=== PATIENT | male | born 1995 | race Caucasian/White ===

== ENCOUNTER 2018-11-14 21:01 | Emergency (ER) | payer SELFPAY ==
[2018-11-14] MEDS ORDERED: FAMOTIDINE 20 MG/2 ML VIAL IV ONE (21:50)
--- NOTE | 2018-11-14 21:55 | RAD REPORT ---
EXAM DESCRIPTION: US - Abdomen Exam Limited - 11/14/2018 9:49 pm CLINICAL HISTORY: EPIGASTRIC PAIN COMPARISON: No comparisons FINDINGS: The gallbladder demonstrates no gallstones. No pericholecystic fluid or gallbladder wall t hickening. The common bile duct is normal measuring 2 mm. The liver demonstrates no findings of intrahepatic biliary dilatation. IMPRESSION: Unremarkable examination.
[2018-11-14 21:57] LABS: Absolute Lymphocytes (CBC) 2.9 K/uL (0.7-4.9); Absolute Monocytes 0.6 K/uL (0.1-1.3); Absolute Neutrophil 5.4 K/uL (1.8-8.0); Basophils % 0.4 % (0-1.3); Eosinophils % 1.8 % (0-4.4); Hematocrit 46.6 % (39.6-49.0); Lymphocytes % 31.7 % (15.3-44.8); Monocytes % 7.1 % (3.3-12.3); RBC Red Blood Cell Count 5.34 M/uL (4.33-5.43)
[2018-11-14 21:59] LABS: Protime INR 0.99
[2018-11-14] MEDS ORDERED: MAGNE/ALUM HYDROXD 30 ML UCUP ONE (22:21)
[2018-11-14] MEDS ORDERED: LIDOCAINE VISCOUS 2% SOLN 15 ML UDC ONE (22:21)
[2018-11-14 22:53] LABS: ALT/SGPT 31 U/L (12-78); AST/SGOT 14 U/L (15-37); Albumin 4.1 g/dL (3.4-5.0); Alkaline Phosphatase 69 U/L (45-117); BUN Blood Urea Nitrogen 21 mg/dL (7-18); Bicarbonate 26 mmol/L (21-32); Bilirubin Direct 0.2 mg/dL (0-0.2); Bilirubin Total 0.7 mg/dL (0.2-1.0); Glucose Level 98 mg/dL (74-106); Lipase 88 U/L (73-393); Magnesium 1.9 mg/dL (1.8-2.4); Potassium 3.8 mmol/L (3.5-5.1); Protein, Total 7.6 g/dL (6.4-8.2); Sodium Level 139 mmol/L (136-145); Troponin (Emerg Dept Use Only) < 0.02 ng/mL (0.0-0.045)
--- NOTE | 2018-11-14 23:42 | ER ---
Nurse's Notes [facility] Name: Jason Allen Age: 23 yrs Sex: Male : 1995 Arrival Date: 11/14/2018 Time: 21:03 Bed 8 Private MD: Diagnosis: Epigastric pain Presentation: 11/14 21:24 Presenting complaint: Patient states: Pt reports for the last couple days he has been ea having left arm pain and numbness with chest pain. Pt reports the pain worsened after he ate spicy food today. Transition of care: patient was not received from another setting of care. Onset of symptoms was November 14, 2018. Risk Assessment: Do you want to hurt yourself or someone else? Patient reports no desire to harm self or others. Initial Sepsis Screen: Does the patient meet any 2 criteria? HR > 90 bpm. Does the patient have a suspected source of infection? No. Patient's initial sepsis screen is negative. Care prior to arrival: None. 21:24 Method Of Arrival: Ambulatory ea 21:24 Acuity: BERNADETTE 3 ea Triage Assessment: 21:31 General: Appears uncomfortable, Behavior is anxious. Pain: Complains of pain in ea epigastric area, right hand, left hand, right arm and left arm Quality of pain is described as burning, numb. Neuro: Level of Consciousness is awake, alert, obeys commands, Oriented to person, place, time, situation. Cardiovascular: Patient's skin is warm and dry. Respiratory: Airway is patent Respiratory effort is even, unlabored, Respiratory pattern is regular, symmetrical. Derm: Skin is pink, warm \T\ dry. Historical: - Allergies: 21:30 No Known Allergies; ea - Home Meds: 21:30 None [Active]; ea - PMHx: 21:30 None; ea - PSHx: 21:30 None; ea - Immunization history:: Adult Immunizations up to date. - Social history:: Smoking status: Patient/guardian denies using tobacco, Patient uses marijuana occasionally. - Ebola Screening: : No symptoms or risks identified at this time. Screenin:27 Abuse screen: Denies threats or abuse. Nutritional screening: No deficits noted. ea Tuberculosis screening: No symptoms or risk factors identified. Fall Risk None identified. Assessment: 21:32 Reassessment: see triage assessment. ea 22:37 Reassessment: Patient and/or family updated on plan of care and expected duration. Pain ea level reassessed. Patient is alert, oriented x 3, equal unlabored respirations, skin warm/dry/pink. 23:50 Reassessment: Patient and/or family updated on plan of care and expected duration. Pain ea level reassessed. Patient is alert, oriented x 3, equal unlabored respirations, skin warm/dry/pink. Discharge instructions given to patient, verbalized the understanding of instruction Patient states feeling better. Patient states symptoms have improved. Vital Signs: 21:28 BP 142 / 102; Pulse 102; Resp 19; Temp 99.2; Pulse Ox 97% on R/A; Weight 99.79 kg; ea Height 5 ft. 8 in. (172.72 cm); Pain 8/10; 21:37 BP 136 / 90; Pulse 100; Resp 19; Pulse Ox 95% ; ea 22:38 BP 167 / 100; Pulse 82; Resp 18; Pulse Ox 95% ; ea 23:37 BP 120 / 94; Pulse 80; Resp 16; Pulse Ox 95% ; ea 21:28 Body Mass Index 33.45 (99.79 kg, 172.72 cm) ea ED Course: 21:03 Patient arrived in ED. ds1 21:15 Herbie Dial PA is PHCP. cp 21:15 Herbie Reynaga MD is Attending Physician. cp 21:24 Jannet Escoto, RN is Primary Nurse. ea 21:27 Triage completed. ea 21:27 Patient has correct armband on for positive identification. Placed in gown. Bed in low ea position. Call light in reach. Side rails up X 1. case monitor on. 21:27 Arm band placed on right wrist. Patient placed in an exam room, on a stretcher, on ea alarm security or surveillance monitor, on pulse oximetry. EKG completed in triage. Results shown to MD. 21:30 Inserted saline lock: 20 gauge in right antecubital area, using aseptic technique. ea Blood collected. Patient maintains SpO2 saturation greater than 95% on room air. 21:52 US Abdomen Limited In Process Unspecified. EDMS 23:29 X-ray completed. Portable x-ray completed in exam room. Patient tolerated procedure sg4 well. 23:30 XRAY Chest (1 view) In Process Unspecified. EDMS 23:50 No provider procedures requiring assistance completed. IV discontinued, intact, ea bleeding controlled, No redness/swelling at site. Pressure dressing applied. Administered Medications: 22:01 Drug: Pepcid 20 mg Route: IVP; Site: right antecubital; ea 22:13 Follow up: Response: No adverse reaction ea 22:13 Drug: GI Cocktail without - (Maalox Suspension 30 ml, Lidocaine Liquid 2 % 15 ea ml) Route: PO; 23:00 Follow up: Response: No adverse reaction; Marked relief of symptoms ea Outcome: 23:41 Discharge ordered by . roel 23:50 Discharged to home ambulatory, with family. emery 23:50 Condition: improved 23:50 Discharge instructions given to patient, Instructed on discharge instructions, follow up and referral plans. medication usage, Demonstrated understanding of instructions, follow-up care, medications, Prescriptions given X 1. 23:57 Patient left the ED. ea Signatures: Dispatcher [employer] EDIsis Doyle ds1 Herbie Dial PA PA cp Antunez, Elena, RN RN Arabella Foley sg4
--- NOTE | 2018-11-14 23:42 | EDPHYS ---
Physician Documentation [facility] Name: Jason Allen Age: 23 yrs Sex: Male : 1995 Arrival Date: 11/14/2018 Time: 21:03 Bed 8 Private MD: ED Physician Herbie Reynaga HPI: 11/14 21:35 This 23 yrs old Male presents to ER via Ambulatory with complaints of cp epigastric pain. 21:35 The patient presents with abdominal pain in the epigastric area. Onset: The cp symptoms/episode began/occurred today. The symptoms do not radiate. Associated signs and symptoms: Pertinent positives: chest pain, Pertinent negatives: nausea and vomiting, anorexia, constipation, diarrhea, fever, testicular pain, vomiting. The symptoms are described as sharp. Patient reports pain started after eating chilli tonight. Patient also c/o intermittent pain with numbness to bilateral forearms. Denies any current arm pain. Historical: - Allergies: 21:30 No Known Allergies; ea - Home Meds: 21:30 None [Active]; ea - PMHx: 21:30 None; ea - PSHx: 21:30 None; ea - Immunization history:: Adult Immunizations up to date. - Social history:: Smoking status: Patient/guardian denies using tobacco, Patient uses marijuana occasionally. - Ebola Screening: : No symptoms or risks identified at this time. ROS: 21:40 Constitutional: Negative for body aches, chills, fever, poor PO intake. cp 21:40 Eyes: Negative for injury, pain, redness, and discharge. cp 21:40 ENT: Negative for drainage from ear(s), ear pain, sore throat, difficulty swallowing, cp difficulty handling secretions. 21:40 Cardiovascular: Positive for chest pain, of the epigastric area, Negative for edema, palpitations. 21:40 Respiratory: Negative for cough, shortness of breath, wheezing. 21:40 Abdomen/GI: Positive for abdominal pain, of the epigastric area, Negative for vomiting, diarrhea, constipation, anorexia, dysphagia, black/tarry stool, rectal bleeding. 21:40 Back: Negative for radiated pain. 21:40 : Negative for urinary symptoms. 21:40 MS/extremity: Positive for pain, paresthesias, intermittent bilateral forearm, Negative for injury or acute deformity, decreased range of motion. 21:40 Skin: Negative for cellulitis, rash. 21:40 Neuro: Negative for altered mental status, headache, weakness. cp 21:40 All other systems are negative. Exam: 21:35 ECG was reviewed by the Attending Physician. cp 21:45 Constitutional: The patient appears in no acute distress, alert, awake, cp non-diaphoretic, non-toxic, well developed, well nourished. 21:45 Head/Face: Normocephalic, atraumatic. cp 21:45 Eyes: Periorbital structures: appear normal, Conjunctiva: normal, no exudate, no cp injection, Sclera: no appreciated abnormality, Lids and lashes: appear normal, bilaterally. 21:45 ENT: External ear(s): are unremarkable, Nose: is normal, Mouth: Lips: moist, Oral mucosa: pink and intact, moist, Posterior pharynx: is normal, airway is patent, no erythema, no exudate. 21:45 Neck: ROM/movement: is normal, is supple, without pain, no range of motions limitations, no meningismus, no nuchal rigidity. 21:45 Chest/axilla: Inspection: normal, Palpation: crepitus, is not appreciated, tenderness, that is mild, of the xyphoid area. 21:45 Cardiovascular: Rate: tachycardic, Rhythm: regular, Pulses: Pulses are 2+ in right radial artery and left radial artery. Heart sounds: murmur, not appreciated, Edema: is not appreciated, JVD: is not appreciated. 21:45 Respiratory: the patient does not display signs of respiratory distress, Respirations: normal, no use of accessory muscles, no retractions, no splinting, no tachypnea, labored breathing, is not present, Breath sounds: are clear throughout, no decreased breath sounds, no stridor, no wheezing. 21:45 Abdomen/GI: Inspection: abdomen appears normal, Bowel sounds: active, all quadrants, Palpation: soft, in all quadrants, mild abdominal tenderness, in the epigastric area, rebound tenderness, is not appreciated, voluntary guarding, is not appreciated, involuntary guarding, is not appreciated. 21:45 Back: pain, is absent, ROM is normal. 21:45 Musculoskeletal/extremity: Exam is negative for decreased range of motion, deformity, injury, Circulation is intact in all extremities. Sensation intact. 21:45 Skin: cellulitis, is not appreciated, no rash present. Vital Signs: 21:28 BP 142 / 102; Pulse 102; Resp 19; Temp 99.2; Pulse Ox 97% on R/A; Weight 99.79 kg; ea Height 5 ft. 8 in. (172.72 cm); Pain 8/10; 21:37 BP 136 / 90; Pulse 100; Resp 19; Pulse Ox 95% ; ea 22:38 BP 167 / 100; Pulse 82; Resp 18; Pulse Ox 95% ; ea 23:37 BP 120 / 94; Pulse 80; Resp 16; Pulse Ox 95% ; ea 21:28 Body Mass Index 33.45 (99.79 kg, 172.72 cm) ea MDM: 21:15 Patient medically screened. vickie 22:00 Differential diagnosis: cholecystitis, Cholelithiasis, gastritis, gastroesophageal cp reflux disease, non-specific abd pain, pancreatitis, Peptic Ulcer Disease, Perf. Duodenal Ulcer, Perf. Gastric Ulcer, cardiac arrythmia. 23:35 Data reviewed: vital signs, nurses notes, lab test result(s), EKG, radiologic studies, cp plain films, ultrasound. 23:35 Test interpretation: by ED physician or midlevel provider: ECG, plain radiologic cp studies. 23:40 Special discussion: Based on the patient's history, exam, and Dx evaluation, there is cp no indication for emergent intervention or inpatient Tx. It is understood by the patient/guardian that if the Sx's persist or worsen they need to return immediately for re-evaluation. Based on the patient's Hx, exam, and Dx evaluation, there is no indication for emergent surgery or inpatient Tx. It is understood by the patient/guardian that if the Sx's persist or worsen they need to return immediately for re-evaluation. 11/14 21:32 Order name: Basic Metabolic Panel; Complete Time: 23:13 cp 11/14 23:13 Interpretation: Normal except: BUN 21; GFR 87. cp 11/14 21:32 Order name: CBC with Diff; Complete Time: 23:13 cp 11/14 21:32 Order name: LFT's; Complete Time: 23:13 cp 11/14 23:14 Interpretation: Normal except: AST 14. cp 11/14 20:32 Order name: Magnesium; Complete Time: 23:13 cp 11/14 21:32 Order name: PT-INR; Complete Time: 23:13 cp 11/14 21:32 Order name: Troponin (emerg Dept Use Only); Complete Time: 23:13 cp 11/14 21:32 Order name: EKG; Complete Time: 21:34 cp 11/14 21:32 Order name: Cardiac monitoring; Complete Time: 21:34 cp 11/14 21:32 Order name: US Abdomen Limited; Complete Time: 23:13 cp 11/14 21:32 Order name: Lipase; Complete Time: 23:13 cp 11/14 23:15 Order name: XRAY Chest (1 view) cp 11/14 21:32 Order name: EKG - Nurse/Tech; Complete Time: 21:34 cp 11/14 21:32 Order name: IV Saline Lock; Complete Time: 21:34 cp 11/14 21:32 Order name: Labs collected and sent; Complete Time: 21:48 cp 11/14 21:32 Order name: O2 Per Protocol; Complete Time: 21:34 cp 11/14 21:32 Order name: O2 Sat Monitoring; Complete Time: 21:34 cp EC:35 Rate is 103 beats/min. Rhythm is regular. OK interval is normal. QRS interval is cp normal. QT interval is normal. Interpreted by me. Reviewed by me. Administered Medications: 22:01 Drug: Pepcid 20 mg Route: IVP; Site: right antecubital; ea 22:13 Follow up: Response: No adverse reaction ea 22:13 Drug: GI Cocktail without - (Maalox Suspension 30 ml, Lidocaine Liquid 2 % 15 ea ml) Route: PO; 23:00 Follow up: Response: No adverse reaction; Marked relief of symptoms ea Disposition: 11/14/18 23:41 Discharged to Home. Impression: Epigastric pain. - Condition is Stable. - Discharge Instructions: Abdominal Pain, Adult, Gastroesophageal Reflux Disease, Adult. - Prescriptions for Protonix 40 mg Oral Tablet, Delayed Release (E.C.) - take 1 tablet by ORAL route once daily for 14 days; 14 tablet. - Medication Reconciliation Form, Thank You Letter, Antibiotic Education, Prescription Opioid Use form. - Follow up: Private Physician; When: 2 - 3 days; Reason: Recheck today's complaints. - Problem is new. - Symptoms have improved. Addendum: 11/18/2018 07:04 Co-signature as Attending Physician, Herbie Ronnell MD I agree with the assessment and c grigsby plan of care. Signatures: Dispatcher [employer] EDHerbie Mcduffie MD MD cha Page, Corey, PA PA cp Jannet Escoto, RN RN ea Corrections: (The following items were deleted from the chart) 11/14 21:37 21:37 This 23 yrs old Male presents to ER via Ambulatory with complaints of cp Numbness Of Arm - L, Chest Pain. cp 23:57 23:41 11/14/2018 23:41 Discharged to Home. Impression: Epigastric pain. Condition is ea Stable. Forms are Medication Reconciliation Form, Thank You Letter, Antibiotic Education, Prescription Opioid Use. Follow up: Private Physician; When: 2 - 3 days; Reason: Recheck today's complaints. Problem is new. Symptoms have improved. cp 11/15 21:35 11/14 21:35 This 23 yrs old Male presents to ER via Ambulatory with cp complaints of epigastric vernoica. cp
--- NOTE | 2018-11-15 08:36 | RAD REPORT ---
EXAM DESCRIPTION: RAD - Chest Single View - 11/14/2018 11:32 pm CLINICAL HISTORY: epigastric pain Chest pain. COMPARISON: Chest Single View dated 06/29/2016 FINDINGS: Portable technique limits examination quality. The lungs are grossly clear. The heart is normal in size. No displaced fractures. IMPRESSION: No acute intrathoracic process suspected.
--- NOTE | 2018-11-15 11:53 | EKG ---
Test Date: 2018-11-14 Test Time: 21:24:21 Armoured Car Escort: PABLO MEASUREMENT RESULTS: Intervals: Rate: 103 [place]: 150 QRSD: 84 QT: 328 QTc: 429 [place]: P: 46 [place]: 150 QRS: 39 T: 11 INTERPRETIVE STATEMENTS: Sinus tachycardia Nonspecific T wave abnormality Abnormal ECG No previous ECG available for comparison Electronically Signed On 11-15-18 11:51:52 HAND [employer]IPPER by Fabian Murphy
== END 2018-11-14 23:57 | disposition home or self-care (01) ==
LOC: ER 21:01
DX: R10.13 Epigastric pain (principal)
CPT/HCPCS: 36415; 71045; 76705; 80048; 80076; 83690; 83735; 84484; 85025; 85610; 93005; 96374; 99285

== ENCOUNTER 2024-12-13 04:07 | Emergency (ER) | payer SELFPAY ==
[2024-12-13] MEDS ORDERED: TDAP (DIPHTH,PERTUSS(ACELL),TET VAC) 0.5 ML VIAL IMVAC ONE (04:41)
[2024-12-13] MEDS ORDERED: LIDOCAINE 1% 20 ML MDV ONE (04:41)
[2024-12-13] MEDS ORDERED: HYDROCODONE/APAP 5/325 MG TAB ONE (06:20)
--- NOTE | 2024-12-13 06:28 | RAD REPORT ---
PROCEDURE: CT Head, Maxillofacial and Cervical Spine Without Intravenous Contrast CLINICAL INDICATION: The patient is 29 years old and is Male; TRAUMA Bed Name: 2 TECHNIQUE: Axial computed tomography images of the head/brain, face and cervical spine without intravenous contr ast. Sagittal and coronal reformatted images were created and reviewed. This CT exam was performed using one or more of the following dose reduction techniques: automated exposure control, adjustment of the mA and/or kV according to patient size, and/or use of iterative reconstruction technique. COMPARISON: No relevant prior studies available. FINDINGS: BRAIN: No extra-axial fluid collection. No intracranial hemorrhage. No focal dorado-white matter differentiation abnormality. MIDLINE SHIFT: No midline shift. VENTRICLES: Unremarkable No ventriculomegaly. SKULL: See below. SINUSES: Mild bilateral ethmoid air cell and maxillary sinus mucosal thickening with probably secre tions noted in the right maxillary sinus. MASTOID AIR CELLS: Unremarkable as visualized. No mastoid effusion. ORBITS: Bilateral globes and orbits are intact with no abnormal intraorbital mass, collection, or f oreign body. VERTEBRAE: Straightening of the normal lordosis of the cervical spine as the patient is positioned. Appearance is nonspecific and could be positional or seen with muscular strain or spasm. No acute fracture or acute vertebral body height loss. No significant subluxation. DISCS/SPINAL CANAL/NEURAL FORAMINA: No acute findings. No transtentorial herniation. No significant bony spinal canal stenosis. OTHER BONES/JOINTS: Unremarkable as visualized. No fracture of the calvarium or facial bones. SOFT TISSUES: Vertically oriented laceration with small contusion overlying the midline forehead. Small right infraorbital soft tissue contusion. No abnormal prevertebral soft tissue swelling. LYMPH NODES: Reactive appearing bilateral cervical lymphadenopathy. No necrotic or suppurative lymp h nodes. OTHER FINDINGS: Dens is intact. No dislocation. Craniocervical orientation is normal. IMPRESSION: 1. No acute intracranial abnormality. 2. No acute osseous abnormality of the cervical spine or maxillofacial bones. 3. Vertically oriented laceration with small contusion overlying the midline forehead. Small right infraorbital soft tissue contusion. 4. Straightening of the normal lordosis of the cervical spine as the patient is positioned. Appeara nce is nonspecific and could be positional or seen with muscular strain or spasm. 5. Mild bilateral paranasal sinus disease. Electronically signed by: Rm Santana MD 12/13/2024 06:17 AM [facility] Due to temporary technical issues with the PACS/Opendisc reporting system, reports are being andres d by the in-house radiologist without review as a courtesy to ensure prompt reporting the interpreting radiologist is fully responsible for the content of the report. Transcribed Date/Time: 12/13/2024 6:28 AM
--- NOTE | 2024-12-13 06:29 | RAD REPORT ---
PROCEDURE: CT Head, Maxillofacial and Cervical Spine Without Intravenous Contrast CLINICAL INDICATION: The patient is 29 years old and is Male; TRAUMA Bed Name: 2 TECHNIQUE: Axial computed tomography images of the head/brain, face and cervical spine without intravenous contr ast. Sagittal and coronal reformatted images were created and reviewed. This CT exam was performed using one or more of the following dose reduction techniques: automated exposure control, adjustment of the mA and/or kV according to patient size, and/or use of iterative reconstruction technique. COMPARISON: No relevant prior studies available. FINDINGS: BRAIN: No extra-axial fluid collection. No intracranial hemorrhage. No focal dorado-white matter differentiation abnormality. MIDLINE SHIFT: No midline shift. VENTRICLES: Unremarkable No ventriculomegaly. SKULL: See below. SINUSES: Mild bilateral ethmoid air cell and maxillary sinus mucosal thickening with probably secre tions noted in the right maxillary sinus. MASTOID AIR CELLS: Unremarkable as visualized. No mastoid effusion. ORBITS: Bilateral globes and orbits are intact with no abnormal intraorbital mass, collection, or f oreign body. VERTEBRAE: Straightening of the normal lordosis of the cervical spine as the patient is positioned. Appearance is nonspecific and could be positional or seen with muscular strain or spasm. No acute fracture or acute vertebral body height loss. No significant subluxation. DISCS/SPINAL CANAL/NEURAL FORAMINA: No acute findings. No transtentorial herniation. No significant bony spinal canal stenosis. OTHER BONES/JOINTS: Unremarkable as visualized. No fracture of the calvarium or facial bones. SOFT TISSUES: Vertically oriented laceration with small contusion overlying the midline forehead. Small right infraorbital soft tissue contusion. No abnormal prevertebral soft tissue swelling. LYMPH NODES: Reactive appearing bilateral cervical lymphadenopathy. No necrotic or suppurative lymp h nodes. OTHER FINDINGS: Dens is intact. No dislocation. Craniocervical orientation is normal. IMPRESSION: 1. No acute intracranial abnormality. 2. No acute osseous abnormality of the cervical spine or maxillofacial bones. 3. Vertically oriented laceration with small contusion overlying the midline forehead. Small right infraorbital soft tissue contusion. 4. Straightening of the normal lordosis of the cervical spine as the patient is positioned. Appeara nce is nonspecific and could be positional or seen with muscular strain or spasm. 5. Mild bilateral paranasal sinus disease. Electronically signed by: Rm Santana MD 12/13/2024 06:17 AM [facility] Due to temporary technical issues with the PACS/etechies.in reporting system, reports are being andres d by the in-house radiologist without review as a courtesy to ensure prompt reporting the interpreting radiologist is fully responsible for the content of the report. Transcribed Date/Time: 12/13/2024 6:28 AM
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
[2024-12-13 14:16] VITALS: BP 109/70; O2SAT 98
== END 2024-12-13 07:10 | disposition home or self-care (01) ==
LOC: ER 04:07
DX: S01.111A Laceration without foreign body of right eyelid and periocular area, initial encounter (principal); S01.81XA Laceration without foreign body of other part of head, initial encounter; Z04.71 Encounter for examination and observation following alleged adult physical abuse
CPT/HCPCS: 12002; 12011; 70450; 70486; 72125; 76377; 96372; 99284; J2003

== ENCOUNTER 2024-12-23 13:11 | Emergency (ER) | payer SELFPAY ==
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
--- NOTE | 2024-12-23 13:30 | ER ---
Nurse's Notes [facility] Name: Jason Allen Age: 29 yrs Sex: Male : 1995 Arrival Date: 12/23/2024 Time: 13:11 Bed Waiting Private MD: Diagnosis: Encounter for removal of sutures ED Course: 12/23 13:15 Patient arrived in ED. mr 13:17 [facility] Burnham [facility]C [facility]. kb 13:17 Yao Hurtado MD is Attending Physician. kb Administered Medications: No medications were administered Outcome: 13:23 Discharge ordered by . kb 13:30 Patient left the ED. ld1 Signatures: Alla Burnham FNP-C FNP-Courtney Salguero, Tara Andres, RN RN ld1
== END 2024-12-23 13:30 | disposition home or self-care (01) ==
LOC: ER 13:11
DX: Z48.02 Encounter for removal of sutures (principal)